=== PATIENT | female | born 1955 | race Caucasian/White ===

== ENCOUNTER 2016-09-15 13:08 | Day surgery (SDC) | payer OTHER ==
[~2016-09-15] VITALS: Ht 169.6 cm; Wt 93.9 kg
[~2016-09-15 13:08] MED LIST: 0.9% Sodium Chloride 1,000 ML IV SCH; ALBU18HF INH; ASPI325T32 PO; ATOR80TA PO; BECL8.7A5 INHALATION; CHOL10008 PO; NICO4LOZ47 PO; NITR0.4T SL; OMEP20CA11 PO; TIOT18CA3 IH; fentaNYL-PF 50 mCg/mL 2 mL Inj IVPUSH PRN
[2016-09-15 13:51] VITALS: BP 109/64; PULSE 83; RESP 19; O2SAT 93
[2016-09-15 15:03] VITALS: BP 111/57; PULSE 76; RESP 14; O2SAT 93
[2016-09-15 15:12] VITALS: BP 100/54; PULSE 79; RESP 14; O2SAT 93
[2016-09-15 15:22] VITALS: BP 98/57; PULSE 79; RESP 14; O2SAT 92
--- NOTE | 2016-09-15 15:32 | ENDO ---
[address] [address] ENDOSCOPY PROCEDURE PATIENT: TWIN NEWBERRY : 1955 MR#: [id number] ADMIT: 09/15/2016 JOB ID: [id number] DATE OF SERVICE: 09/15/2016 PREPROCEDURAL DIAGNOSIS: Bartholomew's esophagus without dysplasia. POSTPROCEDURAL DIAGNOSIS: Bartholomew's esophagus without dysplasia. PROCEDURE PERFORMED: Upper endoscopy with biopsies. SURGEON: Eden Diana MD. HISTORY OF PRESENT ILLNESS: This is a 61-year-old woman on whom I performed an endoscopy approximately six months ago after she was in the emergency department with an episode of epigastric pain. She had an irregular squamocolumnar junction, and biopsies performed confirmed Bartholomew's esophagus without dysplasia. Therefore, she presents today for four-quadrant biopsies every 2 cm. MEDICATIONS: 1. Versed 5 mg. 2. Fentanyl 100 mcg. INSTRUMENT: Olympus GIF-H180J. FINDINGS: 1. Bartholomew type mucosa extended from the GE junction at 41 cm to the squamocolumnar junction at 37 cm. Biopsies were performed at 41, 39, 37, and 35 cm. C3M4. 2. Normal appearing stomach. 3. Mild prominence of duodenal mucosa, previously biopsied. DESCRIPTION OF PROCEDURE: The patient was brought to the procedural suite and placed in left lateral decubitus position. Moderate anesthesia was induced. A bite block was placed. The endoscope was advanced into the proximal esophagus. The esophagus was normal with the exception of Bartholomew type mucosa present from 41 to 37 cm. This was salmon colored. The endoscope was advanced into the stomach, which was normal, and into the duodenum, which was normal with the exception of prominent villi in D1, previously biopsied. Endoscope was withdrawn, and four-quadrant biopsies were performed at 41, 39, 37, and 35 cm, for surveillance of her Bartholomew esophagus. The endoscope was withdrawn. The patient tolerated the procedure well. ESTIMATED BLOOD LOSS: 3 mL. SPECIMENS: Esophageal biopsies as noted above. COMPLICATIONS: None. MTDD
--- NOTE | 2016-09-19 14:10 | PATH ---
SURGICAL PATHOLOGY Attending Physician:Eden Diana MD CASE STATUS: Signed Out PATIENT NAME: TWIN NEWBERRY PID: [id number] : 1955 DATE COLLECTED:09/15/2016 00:00 SPECIMEN: 1: Colon, Biopsy 2: Colon, Biopsy 3: Colon, Biopsy 4: Colon, Biopsy CLINICAL HISTORY: 1: 41 BIOPSY 2: 39 BIOPSY 3: 37 BIOPSY 4: 35 BIOPSY FINAL DIAGNOSIS: 1. Esophageal Biopsy at 41 cm: Gastric cardia-type mucosa with specialized metaplasia consistent with Bartholomew's type esophagus. No squamous mucosa identified. Negative for dysplasia and malignancy. 2. Esophageal Biopsy at 39 cm: Squamous mucosa and gastric cardia-type mucosa positive for specialized metaplasia of Bartholomew's type esophagus. Negative for dysplasia and malignancy. Eosinophils are not increased. 3. Esophageal Biopsy at 37 cm: Fragments of gastric cardia-type mucosa negative for specialized metaplasia of Bartholomew's type esophagus. No squamous mucosa identified. Negative for dysplasia and malignancy. 4. Esophageal Biopsy at 35 cm: Fragments of squamous epithelium, negative for atypia. No gastric-type epithelium identified. Eosinophils are not increased. ICD10 K22.70 GROSS DESCRIPTION: The specimen is received in four formalin filled containers labeled with the patient's name. 1). The specimen is sublabeled "41 BX " and consists of 4 portions of tissue which aggregate to 0.3 x 0.3 x 0.2 CM. The specimen is entirely submitted in cassette 1A. 2). The specimen is sublabeled "39 BX " and consists of 4 portions of tissue which aggregate to 0.4 x 0.4 x 0.2 CM. The specimen is entirely submitted in cassette 2A. 3). The specimen is sublabeled "37 BX " and consists of 4 portions of tissue which aggregate to 0.4 x 0.4 x 0.2 CM. The specimen is entirely submitted in cassette 3A. 4). The specimen is sublabeled "35 BX" and consists of 4 portions of tissue which aggregate to 0.4 x 0.4 x 0.2 CM. The specimen is entirely submitted in cassette 4A. 09/16/2016 [facility] ICD-9 CODES: CPT CODES: 1: 32692 2: 32322 3: 84101 4: 90135 Electronically Signed Out Edward Che MD [facility] [address], [place] [address] Technical component performed at [facility], [address], [place], [address]
== END 2016-09-15 23:59 | disposition home or self-care (01) ==
LOC: END 13:08
PROVIDERS: ATTEND Surgery
DX: K22.70 Barrett's esophagus without dysplasia (principal); F17.210 Nicotine dependence, cigarettes, uncomplicated; Z79.82 Long term (current) use of aspirin; Z79.899 Other long term (current) drug therapy
CPT/HCPCS: 43239; 88305; 99153; G0500; J2250; J7030